=== PATIENT | female | born 1955 | race Caucasian/White ===

== ENCOUNTER 2018-02-22 20:53 | Inpatient (IN) | payer MEDICARE, MEDICAID ==
[~2018-02-22] VITALS: Ht 167.6 cm; Wt 68.0 kg
[~2018-02-22 20:53] MED LIST: ACET-1008 PO; BENZ2TAB7 PO; CLON0.1T PO; DOCU-28 PO; IBUP-1984 PO; LEVO100T78 PO; LORA1TAB PO; LURA20TA PO; OMEP20CA4 PO; POLY17PO10 PO; RISP0.5T74 PO; SIME80TA13 PO
[2018-02-22] MEDS ORDERED: ibuprofen tablet 400 MG TABLET PO ONE (22:50)
[2018-02-22] MEDS ORDERED: normal saline 1000ML IV soln IVB ONE (22:50)
[2018-02-22 23:01] LABS: BASOPHILS % (AUTO) 0.3 % (0-1); EOSINOPHILS % (AUTO) 0 % (0-6); HEMATOCRIT 40.8 % (35.0-45.0); HEMOGLOBIN 13.4 g/dl (12.0-16.0); LYMPHOCYTES # (AUTO) 1.2 X10'3 (1.1-4.8); LYMPHOCYTES % (AUTO) 17.8 % (21-51); MEAN CORPUSCULAR HEMOGLOBIN 30.7 PG (27.0-31.0); MEAN CORPUSCULAR HGB CONC 32.9 % (33.0-36.5); MEAN CORPUSCULAR VOLUME 93.2 FL (78-98); MEAN PLATELET VOLUME 7.7 FL (7.4-10.4); MONOCYTES % (AUTO) 14.7 % (2-12); NEUTROPHILS # (AUTO) 4.5 X10'3 (1.8-7.7); NEUTROPHILS % (AUTO) 67.2 % (42-75); PLATELET COUNT 257 X10'3 (140-440); RED BLOOD COUNT 4.37 X10'6 (4.20-5.60); RED CELL DISTRIBUTION WIDTH 12.7 % (11.5-14.5); WHITE BLOOD COUNT 6.7 X10'3 (4.5-11.0)
[2018-02-22 23:16] LABS: ALANINE AMINOTRANSFERASE 21 U/L (12-78); ALBUMIN 3.3 G/DL (3.4-5.0); ALBUMIN/GLOBULIN RATIO 0.9 (1.1-1.5); ALKALINE PHOSPHATASE 42 IU/L (46-116); ANION GAP 6 (8-16); ASPARTATE AMINO TRANSFERASE 22 U/L (10-37); BILIRUBIN,TOTAL 0.3 MG/DL (0.1-1.0); BLOOD UREA NITROGEN 18 MG/DL (7-18); BUN/CREATININE RATIO 22.5 (6.6-38.0); CALCIUM 9.1 MG/DL (8.5-10.1); CHLORIDE 101 MMOL/L (99-107); GLUCOSE 117 MG/DL (70-104); POTASSIUM 3.8 MMOL/L (3.5-5.1); SODIUM 137 MMOL/L (135-145); TOTAL PROTEIN 6.9 G/DL (6.4-8.2); eGFR 72 ML/MIN
[2018-02-22] MEDS ORDERED: IBUP-1984 PO (23:39)
[2018-02-22] MEDS ORDERED: AMOX-580 PO (23:39)
[2018-02-22 23:44] LABS: CLARITY,URINE CLEAR (Clear); COLOR,URINE YELLOW (Yellow); GLUCOSE, URINE NEGATIVE (Neg); KETONES,URINE NEGATIVE (Neg); LEUKOCYTE ESTERASE ,URINE NEGATIVE (Neg); NITRITES, URINE NEGATIVE (Neg); OCCULT BLOOD,URINE NEGATIVE (Neg); PH,URINE 6.5 (4.8-8.0); PROTEIN,URINE NEGATIVE (Neg); UROBILINOGEN,URINE 0.2 E.U/dL (0.2-1.0)
[2018-02-22 23:46] LABS: UA COLLECTION TYPE VOIDED
[2018-02-23] MEDS ORDERED: ondansetron/PF 4mg/2ml inj IV PRN (00:35)
[2018-02-23] MEDS ORDERED: morphine 2 MG/ML inj. syringe IV PRN (00:35)
[2018-02-23] MEDS ORDERED: diphenhydrAMINE 25mg capsule PO PRN (00:35)
[2018-02-23] MEDS ORDERED: HYDROmorphone 1 mg/ml syringe IV PRN (00:35)
[2018-02-23] MEDS ORDERED: metoclopramide 5 mg/ml inj IV PRN (00:35)
[2018-02-23] MEDS ORDERED: diphenhydrAMINE 50 mg/ml inj IV PRN (00:35)
[2018-02-23] MEDS ORDERED: magnesium hydroxide 30ml (MOM) UD suspension PO PRN (00:35)
[2018-02-23] MEDS ORDERED: acetaminophen 650mg rectal suppository RC PRN (00:35)
[2018-02-23] MEDS ORDERED: bisacodyl 10mg suppository rectal RC PRN (00:35)
[2018-02-23] MEDS ORDERED: HYDROcodone/acetaminophen 5mg/325mg tablet PO PRN (00:35)
[2018-02-23] MEDS ORDERED: mag hydrox/Alum hydrox/simeth 30ml oral suspension PO PRN (00:35)
[2018-02-23] MEDS ORDERED: acetaminophen 325mg tablet PO PRN ×2 (00:35)
[2018-02-23] MEDS ORDERED: ARIP20TA4 PO (00:52)
[2018-02-23 01:01] LABS: HEMOGLOBIN A1C 5.9 % (4.5-6.2)
[2018-02-23 01:06] LABS: LIPASE 234 U/L (73-393); MAGNESIUM 1.8 MG/DL (1.5-2.4); PHOSPHORUS 3.7 MG/DL (2.3-4.5); TROPONIN I < 0.04 NG/ML (0.0-0.05)
[2018-02-23 01:20] LABS: INR 1.1 INR; PARTIAL THROMBOPLASTIN TIME 32 SECONDS (22-32); PROTHROMBIN TIME 10.7 SECONDS (9.0-12.0)
[2018-02-23] MEDS: normal saline 1000ml 1,000 ML IV SCH ×2 (01:20→07:37)
[2018-02-23 02:01] VITALS: BP 119/67
[2018-02-23] MEDS ORDERED: LORA1TAB PO (02:41)
[2018-02-23] MEDS ORDERED: ZINC57OI3 TOP (02:41)
[2018-02-23] MEDS ORDERED: BISA10SU8 RC (02:41)
[2018-02-23] MEDS ORDERED: NA P133E4 RC (02:41)
[2018-02-23] MEDS ORDERED: HYDR28CR14 TOP (02:41)
[2018-02-23] MEDS ORDERED: [UNRECOGNIZED DRUG - CODE] EACH EAR (02:41)
[2018-02-23] MEDS ORDERED: CALC1TAB97 PO (02:41)
[2018-02-23] MEDS ORDERED: DOCU250C4 PO (02:41)
[2018-02-23] MEDS ORDERED: DIPH25CA83 PO (02:41)
[2018-02-23] MEDS ORDERED: MELA3TAB PO (02:41)
[2018-02-23 07:00] VITALS: BP 122/65
[2018-02-23] MEDS ORDERED: methylPREDNISolone sod succ 125mg/2ml vial IV SCH (08:00)
[2018-02-23] MEDS ORDERED: azithromycin 250mg tablet PO SCH (08:00)
[2018-02-23] MEDS ORDERED: pantoprazole 40 MG vial IV SCH (08:00)
[2018-02-23] MEDS ORDERED: CefTRIAXone/D5W-Rocephin 1gm 50 ML IV SCH (08:00)
[2018-02-23] MEDS ORDERED: docusate sod 100mg capsule PO SCH (08:00)
[2018-02-23 10:53] LABS: CREATINE KINASE 112 U/L (26-192)
[2018-02-23 13:28] VITALS: BP 146/68
[2018-02-23] MEDS ORDERED: temazepam 15mg capsule PO PRN (21:00)
== END 2018-02-23 18:53 | disposition home or self-care (01) | DRG 389 ==
LOC: ER 20:53 → ED HOLD 02-23 00:32 → EDBEDREQ 02-23 00:57 → SUR 3N 02-23 02:32
PROVIDERS: ADMIT Family Medicine; ATTEND Internal Medicine
PROC: 0D9670Z Drainage of Stomach with Drainage Device, Via Natural or Artificial Opening (ICD-10-PCS; principal; 2018-02-23)
DX: K56.7 Ileus, unspecified (principal); F84.0 Autistic disorder; I31.3 Pericardial effusion (noninflammatory); A08.4 Viral intestinal infection, unspecified; E03.9 Hypothyroidism, unspecified; E78.00 Pure hypercholesterolemia, unspecified; E86.0 Dehydration; F95.2 Tourette's disorder; J01.00 Acute maxillary sinusitis, unspecified; J45.909 Unspecified asthma, uncomplicated; R09.02 Hypoxemia; R62.50 Unspecified lack of expected normal physiological development in childhood; F41.9 Anxiety disorder, unspecified; Z88.8 Allergy status to other drugs, medicaments and biological substances; Z79.899 Other long term (current) drug therapy; Z87.440 Personal history of urinary (tract) infections
CPT/HCPCS: 36415; 71046; 74176; 80053; 81003; 82550; 83036; 83605; 83690; 83735; 83880; 84100; 84443; 84484; 85025; 85610; 85730; 87040; 87070; 94760; 96360; 99285; C9113; G0378; J0696; J2930; J7030

== ENCOUNTER 2019-03-23 14:02 | Emergency (ER) | payer MEDICARE, MEDICAID ==
[~2019-03-23] VITALS: Ht 157.5 cm; Wt 72.7 kg
[~2019-03-23 14:02] MED LIST changes: +ARIP20TA4 PO; +BISA10SU11 RC; +CALC1TAB97 PO; +DIPH25CA83 PO; -DOCU-28 PO; +DOCU-329 PO; +HYDR28CR14 TOP; -LURA20TA PO; +MELA3TAB64 PO; +NA P133E4 RC; -OMEP20CA4 PO; +ZINC57OI3 TOP; +[UNRECOGNIZED DRUG - CODE] EACH EAR
[2019-03-23 14:04] VITALS: BP 145/81
--- NOTE | 2019-03-23 14:23 | NUR ---
LUCIANO MONREALN AT [facility] [phone]
== END 2019-03-23 15:10 | disposition home or self-care (01) ==
LOC: ER 14:03
DX: S00.83XA Contusion of other part of head, initial encounter (principal); E78.00 Pure hypercholesterolemia, unspecified; R41.82 Altered mental status, unspecified; F84.0 Autistic disorder; Z79.899 Other long term (current) drug therapy; Z88.8 Allergy status to other drugs, medicaments and biological substances; W18.30XA Fall on same level, unspecified, initial encounter; Y93.89 Activity, other specified; Y92.89 Other specified places as the place of occurrence of the external cause; Y99.9 Unspecified external cause status
CPT/HCPCS: 70450; 70486; 99284

== ENCOUNTER 2020-08-03 16:25 | Emergency (ER) | payer MEDICARE, MEDICAID ==
[~2020-08-03] VITALS: Ht 160 cm; Wt 65.5 kg
[~2020-08-03 16:25] MED LIST changes: -DOCU-329 PO; +DOCU250C96 PO; +MELA3TAB39 PO; -MELA3TAB64 PO
[2020-08-03 16:45] VITALS: BP 131/76
[2020-08-03 19:16] LABS: BASOPHILS % (AUTO) 0.5 % (0-1); EOSINOPHILS # (AUTO) 0.1 X10'3 (0-0.9); EOSINOPHILS % (AUTO) 0.8 % (0-6); HEMATOCRIT 42.6 % (35.0-45.0); HEMOGLOBIN 14.3 g/dl (12.0-16.0); LYMPHOCYTES # (AUTO) 1.9 X10'3 (1.1-4.8); LYMPHOCYTES % (AUTO) 25.7 % (21-51); MEAN CORPUSCULAR HEMOGLOBIN 31.8 PG (27.0-31.0); MEAN CORPUSCULAR HGB CONC 33.5 g/dL (33.0-36.5); MEAN PLATELET VOLUME 7.3 FL (7.4-10.4); MONOCYTES # (AUTO) 0.5 X10'3 (0-0.9); MONOCYTES % (AUTO) 6.9 % (2-12); NEUTROPHILS # (AUTO) 4.9 X10'3 (1.8-7.7); NEUTROPHILS % (AUTO) 66.1 % (42-75); PLATELET COUNT 282 X10'3 (140-440); RED BLOOD COUNT 4.49 X10'6 (4.20-5.60); RED CELL DISTRIBUTION WIDTH 12.5 % (11.5-14.5); WHITE BLOOD COUNT 7.4 X10'3 (4.5-11.0)
[2020-08-03 19:28] LABS: ALANINE AMINOTRANSFERASE 17 U/L (12-78); ALBUMIN 3.3 G/DL (3.4-5.0); ALBUMIN/GLOBULIN RATIO 0.9 (1.1-1.5); ALKALINE PHOSPHATASE 64 IU/L (46-116); ANION GAP 7 (8-16); ASPARTATE AMINO TRANSFERASE 18 U/L (10-37); BILIRUBIN,TOTAL 0.3 MG/DL (0.1-1.0); BLOOD UREA NITROGEN 17 MG/DL (7-18); BUN/CREATININE RATIO 28.3 (6.6-38.0); CALCIUM 9.2 MG/DL (8.5-10.1); CHLORIDE 105 MMOL/L (99-107); GLUCOSE 115 MG/DL (70-104); POTASSIUM 4.1 MMOL/L (3.5-5.1); SODIUM 140 MMOL/L (135-145); TOTAL CARBON DIOXIDE 27.6 MMOL/L (24-32); TOTAL PROTEIN 6.9 G/DL (6.4-8.2); eGFR > 90 ML/MIN
[2020-08-03 21:30] LABS: CLARITY,URINE CLEAR (Clear); COLOR,URINE YELLOW (Yellow); GLUCOSE, URINE NEGATIVE (Neg); KETONES,URINE NEGATIVE (Neg); LEUKOCYTE ESTERASE ,URINE NEGATIVE (Neg); NITRITES, URINE NEGATIVE (Neg); OCCULT BLOOD,URINE NEGATIVE (Neg); PROTEIN,URINE NEGATIVE (Neg); UROBILINOGEN,URINE 0.2 E.U/dL (0.2-1.0)
[2020-08-03 21:32] LABS: UA COLLECTION TYPE CLN CATCH MIDSTREAM
== END 2020-08-03 22:53 | disposition home or self-care (01) ==
LOC: ER 16:26
DX: Z00.00 Encounter for general adult medical examination without abnormal findings (principal); R63.0 Anorexia; R41.82 Altered mental status, unspecified; E78.00 Pure hypercholesterolemia, unspecified; E03.9 Hypothyroidism, unspecified; Z88.8 Allergy status to other drugs, medicaments and biological substances; Z98.890 Other specified postprocedural states
CPT/HCPCS: 36415; 80053; 81003; 83605; 85025; 99283

== ENCOUNTER 2025-02-06 08:49 | Emergency (ER) | payer MEDICARE, MEDICAID ==
[~2025-02-06] VITALS: Ht 160 cm; Wt 60.5 kg
[~2025-02-06 08:49] MED LIST changes: +BENZ2TAB66 PO; -BENZ2TAB7 PO; +CALC-952 PO; -CALC1TAB97 PO; +DOCU-395 PO; -DOCU250C96 PO
--- NOTE | 2025-02-06 09:57 | Physician Documentation ---
History of Present Illness ~ Chief Complaint: Mechanical Fall Stated Complaint: FALL HEAD LAC Time Seen by MD: 09:22 Primary Medical Doctor[facility] 69-year-old female presents to the ED after falling off of the toilet and striking her left brow. There was no reported loss of consciousness in behavior is at baseline which is severely autistic and nonverbal. Patient is controlled no deformity other than small laceration in the left brow Tetanus within 5 Years?: Yes Medication Reconciliation Allergies: Coded Allergies: divalproex sodium (Unverified Allergy, Unknown, 02/06/25) midazolam HCl (Unverified Allergy, Unknown, WILD, 02/06/25) olanzapine (Verified Allergy, Unknown, 02/06/25) Scheduled Acetaminophen (Tylenol), 650 MG PO Q4H PRN PAIN, (Reported) Aripiprazole (Abilify), 1 TAB PO QAM, (Reported) Benztropine Mesylate (Benztropine Mesylate), 1 TABLET PO BID, (Reported) Calcium Carbonate/Vitamin D3 (Calcium 600 + Vit D3 400 Tab), 1 TAB PO BID, (Reported) Clonidine Hcl (Clonidine Hcl), 0.1 MG PO TID, (Reported) Diphenhydramine Hcl (Benadryl), 1 CAP PO HS, (Reported) Docusate Sodium (Docusate Sodium), 1 CAP PO BID, (Reported) Hydrocortisone (hydrocortisone 1% cream), 1 APPLIC TOP BID, (Reported) Levothyroxine Sodium (Levoxyl), 1 TABLET PO DAILY, (Reported) Lorazepam* (Ativan*), 1.5 TABLET PO TID, (Reported) Melatonin (Melatonin), 3 MG PO HS, (Reported) Mineral Oil (Mineral Oil Light), 2 DROP EACH EAR Q7D, (Reported) Polyethylene Glycol 3350* (Miralax*), 1 PKT PO DAILY, (Reported) Risperidone (Risperdal), 3 TABLET PO BID, (Reported) Simethicone (Mytab Gas), 2 TAB PO BID, (Reported) Zinc Oxide (Desitin), 1 APPLIC TOP Q12H, (Reported) Scheduled PRN Bisacodyl (Bisacodyl), 1 SUPP RC DAILY PRN for constipation, (Reported) Ibuprofen* (Motrin*), 600 MG PO Q6H PRN for P, (Reported) Lorazepam* (Ativan*), 2 MG PO Q24H PRN for for anxiety/agitation, (Reported) Na Phos,M-B/Na Phos,Di-Ba* (Fleet's Enema*), 1 BOTTLE RC ONCE PRN for constipation, (Reported) Past Medical History Past Medical History: High Cholesterol, UTI, Hypothyroidism Past Surgical History: noncontributory Alcohol Use: None Drug Use: none Lives with: Other Lives In: SNF Occupation: disabled Review of Systems All Other Systems at this time: Reviewed and Negative ROS As stated above in the HPI, otherwise all systems are reviewed and negative. Physical Exam Vital Signs: Temperature: 98.7, Source: Oral, Heart Rate: 89, Respiratory Rate: 18, BP: 144/103, Pulse Oximetry: 95, Weight: 60.450 Oxygen Flow Rate: 0 Physical Exam General: Alert, no apparent distress. HEENT: PERRL, EOMI, no injection, moist mucous membranes. 1cm lac left brow with swelling Neck: Full range of motion. Respiratory: Lungs clear, no respiratory distress. Neurologic: Oriented x 1 baseline Psychiatric: Normal mood and affect. Skin: Normal color, warm and dry. No edema, no ecchymosis. Progress Results/Orders Results/Orders Orders - SPENCER MENENDEZ HARDWARE ENGINEER Ct Head (02/06/25 09:40) General Nursing Order (02/06/25 ) * Straight Cath* (02/06/25 10:29) Completed Orders - SPENCER MENENDEZ HARDWARE ENG[employer] Ct Head (02/06/25 09:40) Urinalysis, Cult If Indicated (02/06/25 10:00) Vital Signs 02/06/25 02/06/25 08:52 10:25 Temp 98.7 Pulse 89 Resp 18 B/P (MAP) 144/103 Pulse Ox 95 O2 Flow Rate 0 Laboratory Tests Test 02/06/25 10:17 Urine Specimen Description Straight cath Urine Color Yellow Urine Clarity Clear Urine pH 6.0 Urine Specific [place] 1.025 Urine Protein Negative Urine Glucose (UA) Negative Urine Ketones Trace H Urine Occult Blood Negative Urine Nitrite Negative Urine Bilirubin Negative Urine Urobilinogen 0.2 Urine Leukocyte Esterase Negative Urine Culture Indicated Not ind Volume Urine Centrifuged 10 ml Urine Comment Medical Decision Making Additional information obtaine: old records Findings CT findings were unremarkable. I did order urinalysis to rule out any UTI. Her urine came back negative as well. Considering the patient is at her baseline cognitively in his not in any obvious acute pain, I am going to discharge her for outpatient therapy Differential Dx:Considerations: Include: Closed head injury, Cardiac injury, Fracture(s), Intraabdominal injury, Pneumothorax, Cerebral contusion, Pulmonary contusion, Spine injury, Tracheal injury, Urological injury, Vascular injury, Abrasion(s), Contusion(s), Foreign body(s), Hematoma(s), Laceration(s), Encephalopathy, Other Departure Disposition: 01 HOME / SELF CARE / HOMELESS Impression: Primary Impression: Fall Condition: Improved Discharge Instructions: Fall Prevention in the Home, Adult, [id number] Referrals: NO PRIMARY CARE PROVIDER (PCP) Signature Scribe Signature: c Attestation: Scribed for Spencer Menendez [employer]inkler Irrigation Equipment Mechanic by Spencer Chowdhury NP . 02/06/25 10:52 SPENCER MENENDEZ NP Feb 06, 2025 09:57
--- NOTE | 2025-02-06 10:06 | RADIOLOGY REPORT ---
EXAM: CT CT HEAD INDICATION: fall head strike TECHNIQUE: CT of the head without intravenous contrast. Radiation Dose : 1. Head: CT Dose: CTDI volume is 36 mGy. Dose-length product is 722 mGy*cm The dose indicators for CT are the volume Computed Tomography (CT) Dose Index (CTDIvol) and the Dose Length Product (DLP), and are measured in units of mGy and mGy-cm, respectively. These indicators are not patient dose, but values generated from the CT scanner acquisition factors. The report includes radiation exposure data for exposures received during this examination. COMPARISON: CT CT HEAD on DOS: 01/24/25 FINDINGS: There is no evidence of acute intracranial hemorrhage, extra-axial collection, mass effect, midline shift, herniation or hydrocephalus. The ventricles, sulci and cisterns are age appropriate. The ayoub-white differentiation is intact. Patchy periventricular and subcortical white matter hypoattenuation is nonspecific but may be related to small vessel ischemic disease. The visualized paranasal sinuses and mastoid air cells are clear. The surrounding soft tissues and osseous structures are unremarkable. IMPRESSION: Limited examination secondary to patient positioning and motion artifact. No acute intracranial abnormality. Radiation optimization: All CT scans at this facility use at least one of these dose optimization techniques: automated exposure control mA and/or kV adjustment per patient size (includes targeted exams where dose is matched to clinical indication) or iterative reconstruction.
[2025-02-06 10:24] LABS: LEUKOCYTE ESTERASE ,URINE NEGATIVE (Neg); NITRITES, URINE NEGATIVE (Neg); OCCULT BLOOD,URINE NEGATIVE (Neg)
[2025-02-06 10:31] LABS: UA COLLECTION TYPE STRAIGHT CATH
[2025-02-06 11:33] VITALS: BP 150/82; PULSE 89; RESP 16; TEMP 98.7; O2SAT 97
== END 2025-02-06 11:16 | disposition home or self-care (01) ==
LOC: ER 08:49
DX: S01.112A Laceration without foreign body of left eyelid and periocular area, initial encounter (principal); E78.00 Pure hypercholesterolemia, unspecified; E03.9 Hypothyroidism, unspecified; Z88.8 Allergy status to other drugs, medicaments and biological substances; Z87.440 Personal history of urinary (tract) infections; Z79.899 Other long term (current) drug therapy; W18.11XA Fall from or off toilet without subsequent striking against object, initial encounter; Y93.89 Activity, other specified; Y92.89 Other specified places as the place of occurrence of the external cause; Y99.8 Other external cause status
CPT/HCPCS: 70450; 81003; 99284; A4353; A6402; Z7610; A6449